=== PATIENT | female | born 1960 | race Caucasian/White ===

== ENCOUNTER 2021-04-16 18:57 | Inpatient (IN) | payer OTHER ==
[2021-04-16] MEDS ORDERED: HYDROmorphone 1 MG/ML 1 ML SYRINGE IVP STA ×2 (19:24→20:18)
--- NOTE | 2021-04-16 19:34 | ED ---
General Adult HPI - General Chief complaint: Fall Stated complaint: fall Time Seen by Provider: 04/16/21 19:11 Source: patient, RN notes reviewed, old records reviewed Mode of arrival: EMS Limitations: no limitations - History of Present Illness Initial comments: 60-year-old female presenting with left hip pain status post fall. There was head injury without loss consciousness. No anticoagulation. Patient tripped over a sweater drying rack. She fell onto her left hip. She was unable to ambulate or bear weight. She was transported by EMS. Given 5 mg of morphine prior to arrival. Her chief and may complaint is left hip pain with any sort of movement. No the foot or ankle pain. No chest pain. No palpitations. No fever. - Related Data Home Medications Medication Instructions Recorded Confirmed Ascorbic Acid [Vitamin C] 500 mg PO DAILY 04/16/21 04/16/21 Cholecalciferol [Vitamin D3 (25 25 mcg PO DAILY 04/16/21 04/16/21 Mcg = 1000 Iu)] Dextromethorphan Polistirex 150 mg PO Q12H PRN 04/16/21 04/16/21 [Delsym] Zinc 50 mg PO DAILY 04/16/21 04/16/21 guaiFENesin [Mucinex] 600 mg PO Q12H PRN 04/16/21 04/16/21 Allergies Allergy/AdvReac Type Severity Reaction Status Date / Time No Known Allergies Allergy Verified 04/16/21 20:07 Review of Systems ROS Statement: Those systems with pertinent positive or pertinent negative responses have been documented in the HPI. ROS Other: All systems not noted in ROS Statement are negative. Past Medical History Past Medical History: Thyroid Disorder History of Any Multi-Drug Resistant Organisms: None Reported Past Alcohol Use History: Occasional Past Drug Use History: None Reported General Exam Limitations: no limitations General appearance: alert, in no apparent distress Head exam: Present: normocephalic. Absent: atraumatic (Abrasion and hematoma left lateral orbital region) Eye exam: Present: normal appearance, PERRL ENT exam: Present: normal exam Neck exam: Present: normal inspection. Absent: tenderness, meningismus Respiratory exam: Present: normal lung sounds bilaterally. Absent: respiratory distress, wheezes Cardiovascular Exam: Present: regular rate, normal rhythm GI/Abdominal exam: Present: soft. Absent: distended, tenderness, guarding Extremities exam: Present: tenderness (Internally rotated left lower extremity at the hip. Pain with range of motion. Distal sensation and pulses intact.). Absent: full ROM Neurological exam: Present: alert, oriented X3, CN II-XII intact. Absent: motor sensory deficit Psychiatric exam: Present: normal affect, normal mood Skin exam: Present: warm, dry. Absent: cyanosis, diaphoretic Course Vital Signs 04/16/21 04/16/21 19:00 20:24 Temperature 97.9 F Pulse Rate 105 H 110 H Respiratory 20 16 Rate Blood Pressure 127/59 134/67 O2 Sat by Pulse 97 95 Oximetry Medical Decision Making - Medical Decision Making 60-year-old female presenting status post ground-level fall. Minor head injury. CT performed negative for intracranial hemorrhage or mass effect. Patient has chest x-ray which is clear, she has a left intertrochanteric fracture of the left hip. No other injuries. Did discuss case with cold covering for [facility] who does recommend a full femur x-ray this is pending. She will be admitted to orthopedics with internal medicine on consult. - Lab Data Result diagrams: 04/16/21 19:49 04/16/21 19:49 Lab Results 04/16/21 04/16/21 04/16/21 Range/Units 19:49 19:49 19:49 WBC 13.9 H (3.8-10.6) k/uL RBC 3.55 L (3.80-5.40) m/uL Hgb 12.5 (11.4-16.0) gm/dL Hct 37.8 (34.0-46.0) % MCV 106.6 H (80.0-100.0) fL MCH 35.3 H (25.0-35.0) pg MCHC 33.1 (31.0-37.0) g/dL RDW 13.3 (11.5-15.5) % Plt Count 448 (150-450) k/uL MPV 7.4 Neutrophils % 76 % Lymphocytes % 17 % Monocytes % 5 % Eosinophils % 0 % Basophils % 0 % Neutrophils # 10.7 H (1.3-7.7) k/uL Lymphocytes # 2.4 (1.0-4.8) k/uL Monocytes # 0.7 (0-1.0) k/uL Eosinophils # 0.1 (0-0.7) k/uL Basophils # 0.0 (0-0.2) k/uL Macrocytosis Moderate PT 10.4 (9.0-12.0) sec INR 1.0 (<1.2) APTT 23.2 (22.0-30.0) sec Sodium 139 (137-145) mmol/L Potassium 3.9 (3.5-5.1) mmol/L Chloride 107 (98-107) mmol/L Carbon Dioxide 24 (22-30) mmol/L Anion Gap 8 mmol/L BUN 15 (7-17) mg/dL Creatinine 0.37 L (0.52-1.04) mg/dL Est GFR (CKD-EPI)AfAm >90 (>60 ml/min/1.73 sqM) Est GFR (CKD-EPI)NonAf >90 (>60 ml/min/1.73 sqM) Glucose 101 H (74-99) mg/dL Calcium 8.6 (8.4-10.2) mg/dL Total Bilirubin 0.6 (0.2-1.3) mg/dL AST 42 H (14-36) U/L ALT 25 (4-34) U/L Alkaline Phosphatase 61 (38-126) U/L Total Protein 7.1 (6.3-8.2) g/dL Albumin 4.2 (3.5-5.0) g/dL Disposition Clinical Impression: Fall, Fracture, intertrochanteric, left femur Disposition: ADMITTED IP TO THIS [facility] Condition: Stable Is patient prescribed a controlled substance at d/c from ED?: No Referrals: None,Stated [Primary Care Provider] - 1-2 days Decision to Admit Reason: Admit from EC Decision Date: 04/16/21 Decision Time: 21:10
[2021-04-16 20:08] LABS: Basophils % (A) 0 %; Eosinophils # (A) 0.1 k/uL (0-0.7); Eosinophils % (A) 0 %; HCT 37.8 % (34.0-46.0); HGB 12.5 gm/dL (11.4-16.0); Lymphocytes # (A) 2.4 k/uL (1.0-4.8); Lymphocytes % (A) 17 %; MCH 35.3 pg (25.0-35.0); MCHC 33.1 g/dL (31.0-37.0); MCV 106.6 fL (80.0-100.0); Macrocytosis Moderate; Mean Platelet Volume 7.4; Monocytes # (A) 0.7 k/uL (0-1.0); Monocytes % (A) 5 %; Neutrophils # (A) 10.7 k/uL (1.3-7.7); Neutrophils % (A) 76 %; Platelet Count 448 k/uL (150-450); RBC 3.55 m/uL (3.80-5.40); RDW 13.3 % (11.5-15.5); WBC 13.9 k/uL (3.8-10.6)
[2021-04-16 20:20] LABS: ALT 25 U/L (4-34); AST 42 U/L (14-36); African American GFR (CKD) >90 (>60 ml/min/1.73 sqM); Albumin 4.2 g/dL (3.5-5.0); Alkaline Phosphatase 61 U/L (38-126); Anion Gap 8 mmol/L; Blood Urea Nitrogen 15 mg/dL (7-17); Calcium 8.6 mg/dL (8.4-10.2); Carbon Dioxide 24 mmol/L (22-30); Chloride 107 mmol/L (98-107); Glucose 101 mg/dL (74-99); Non-African American GFR(CKD) >90 (>60 ml/min/1.73 sqM); Potassium 3.9 mmol/L (3.5-5.1); Sodium 139 mmol/L (137-145); Total Bilirubin 0.6 mg/dL (0.2-1.3); Total Protein 7.1 g/dL (6.3-8.2)
[2021-04-16 20:23] LABS: Partial Thromboplastin Time 23.2 sec (22.0-30.0); Prothrombin Time 10.4 sec (9.0-12.0)
--- NOTE | 2021-04-16 20:35 | CT ---
EXAMINATION TYPE: CT brain eleanorine wo con DATE OF EXAM: 04/16/2021 COMPARISON: None HISTORY: Fall. CT DLP: 1357.6 mGycm Automated exposure control for dose reduction was used. TECHNIQUE: CT scan of the head and cervical spine are performed without contrast. FINDINGS: There is no acute intracranial hemorrhage, mass effect, or midline shift identified. The ventricles and sulci are within normal limits in size. The globes are intact . Thickening of the ma xillary sinuses where air cells and frontal sinuses bilaterally Cervical spine is visualized in its entirety from C1 through upper thoracic levels and demonstrates s atisfactory alignment without evidence of acute fracture or dislocation. Prevertebral soft tissue ap pears within normal limits. The C1-C2 articulation is unremarkable. Centrilobular emphysematous lauren nges within the lung apices. IMPRESSION: 1. There is no acute fracture or dislocation evident in the cervical spine. 2. No acute intracranial hemorrhage, mass effect, or midline shift is seen. 3. Centrilobular emphysema. 4. Paranasal sinus disease.
[2021-04-16] MEDS ORDERED: KETOROLAC 30 MG/ML 1 ML VIAL IVP STA (21:00)
--- NOTE | 2021-04-16 21:00 | XR ---
EXAMINATION TYPE: XR Hip LT and AP Pelvis DATE OF EXAM: 04/16/2021 COMPARISON: NONE HISTORY: Pain TECHNIQUE: A single AP view of the pelvis is obtained. Two views of the left hip are obtained. FINDINGS: Deformity of the proximal left hip with fracture line through the intertrochanteric region. No evidence of articular extension. Mild displacement present based 1.9 cm radiopaque foreign body i s identified. Multiple pelvic phleboliths are present. Soft tissues are grossly unremarkable. Additional fractures are identified. IMPRESSION: Left intertrochanteric proximal femur fracture minimal displacement.
--- NOTE | 2021-04-16 21:02 | XR ---
INDICATION: Patient age:Female; 60 years old; Reason for study: Pain; PHH. COMPARISON: None. TECHNIQUE: Frontal view of the chest. FINDINGS: Lungs/Pleura: There is no evidence of pleural effusion, focal consolidation, or pneumothorax. Pulmonary vascularity: Unremarkable. Heart/mediastinum: Cardiomediastinal silhouette is unremarkable. Musculoskeletal: No acute osseous pathology. IMPRESSION: No acute cardiopulmonary disease/process.
[2021-04-16] MEDS ORDERED: NALOXONE 0.4 MG/ML 1 ML VIAL IV PRN (21:04)
[2021-04-16] MEDS ORDERED: ACETAMINOPHEN TAB 325 MG TAB PO PRN (21:04)
[2021-04-16] MEDS: KETOROLAC 30 MG/ML 1 ML VIAL IVP PRN (22:04)
[2021-04-16] MEDS: HYDROmorphone 0.5 MG/0.5 ML SYRINGE IVP PRN (22:08)
[2021-04-16] MEDS: SODIUM CHLORIDE 0.9% 1,000 ML IV SCH (22:18)
--- NOTE | 2021-04-16 22:50 | CT ---
EXAMINATION TYPE: CT femur LT wo con DATE OF EXAM: 04/16/2021 COMPARISON: None HISTORY: fall CT DLP: 465.1 mGycm Automated exposure control for dose reduction was used. Images obtained from the mid ileum to the proximal tibia without contrast. There is comminuted intertrochanteric fracture of the left femur without significant overall displace ment. Acetabulum is intact. Femoral head is intact. The mid and distal femur appear intact. Knee join t is anatomic. There is some lucency in the intertrochanteric region of the left femur. There is loss of the bone tr abecula and the density is slightly higher than the bone marrow in the proximal shaft of the femur. IMPRESSION: Acute comminuted intertrochanteric fracture left femur without significant displacement. There is probably an osteolytic lesion involving the intertrochanteric left femur. This could be myel cristiano.
[2021-04-17] MEDS: KETOROLAC 30 MG/ML 1 ML VIAL IVP PRN (03:04)
[2021-04-17] MEDS: HYDROmorphone 1 MG/ML 1 ML SYRINGE IVP PRN ×2 (07:39→12:22)
--- NOTE | 2021-04-17 10:28 | P.HPOR ---
History of Present Illness H&P Date: 04/17/21 Chief Complaint: left hip pain Patient is a 60-year-old female presenting the hospital with left hip pain status post fall. Patient was seen at bedside this morning lying supine in the emergency department. Patient says last night she was walking in her home and tripped over a sweater drying rack. Patient fell onto her left hip. Patient denies loss of consciousness/trauma to the head. Patient denies any other injuries/pain. Patient is brought to the hospital by EMS. Patient denies any other previous orthopedic surgical history. Patient points and states that most of the pain is located at the outside of her hip. She rates pain as 10/10. Patient says there is radiation of pain down the left leg. Patient says she is not on any blood thinners. Patient says she is a smoker. Patient also says she tested positive for elevated about 10 days ago on Thanksgiving. Patient denies chest pain, fever, shortness of breath, nausea, vomiting, change in vision, loss of bowel/bladder control. Past Medical History Past Medical History: Thyroid Disorder History of Any Multi-Drug Resistant Organisms: None Reported Past Alcohol Use History: Occasional Past Drug Use History: None Reported Medications and Allergies Home Medications Medication Instructions Recorded Confirmed Type Ascorbic Acid [Vitamin C] 500 mg PO DAILY 04/16/21 04/16/21 History Cholecalciferol [Vitamin D3 (25 25 mcg PO DAILY 04/16/21 04/16/21 History Mcg = 1000 Iu)] Dextromethorphan Polistirex 150 mg PO Q12H PRN 04/16/21 04/16/21 History [Delsym] Zinc 50 mg PO DAILY 04/16/21 04/16/21 History guaiFENesin [Mucinex] 600 mg PO Q12H PRN 04/16/21 04/16/21 History Allergies Allergy/AdvReac Type Severity Reaction Status Date / Time No Known Allergies Allergy Verified 04/16/21 20:07 Physical Examination Inspection: Left leg shortened and externally rotated. There is no evidence of ecchymosis, erythema, open fractures on left leg. Sensation: Sensation is equal, symmetric, bilaterally intact throughout. Palpation: There is significant tenderness to palpation diffusely throughout the left hip especially in the lateral hip. Nontender to palpation throughout rest exam Range of motion: Patient is able to flex and exetnd digits in left foot and plantar/dorsiflex left ankle. Left hip/knee ROM limited due to pain. Patient has full range of motion in bilateral UE and RLE Motor: Right leg - 5/5 in resisted hip flexion/extension, knee flexio n/extension, plantar flexion/dorsiflexion the right ankle; 5/5 in resisted elbow flexion/extension, wrist flexion/extension, shoulder abduction, internal/external rotation of the bilateral UE. Left leg motor exams limited due to patient's pain. Resident Physician strength 4/5 in bilateral UE Neurovascular: Refill under 3 seconds bilaterally in upper extremity digits. DP pulses intact, bilaterally, 2+. Results - Labs Labs: Abnormal Lab Results - Last 24 Hours (Table) 04/16/21 04/16/21 04/17/21 Range/Units 19:49 19:49 00:46 WBC 13.9 H (3.8-10.6) k/uL RBC 3.55 L (3.80-5.40) m/uL MCV 106.6 H (80.0-100.0) fL MCH 35.3 H (25.0-35.0) pg Neutrophils # 10.7 H (1.3-7.7) k/uL Creatinine 0.37 L (0.52-1.04) mg/dL Glucose 101 H (74-99) mg/dL AST 42 H (14-36) U/L Coronavirus (PCR) Detected A (Not Detectd) H & H 04/16/21 Range/Units 19:49 Hgb 12.5 (11.4-16.0) gm/dL Hct 37.8 (34.0-46.0) % Coagulation 04/16/21 Range/Units 19:49 INR 1.0 (<1.2) Result Diagrams: 04/16/21 19:49 04/16/21 19:49 Assessment and Plan Assessment: 1. Left hip intertrochanteric fracture status post fall Plan: 1. Left hip intertrochanteric fracture status post fall - patient seen at bedside this morning. Patient to remain nothing by mouth. Plan to take to surgery this afternoon, Sunday, 1left hip intramedullary nail. 2. Appreciate medical management - patient needs medical clearance 3. Pain management - Dilaudid; Toradol; Tylenol 4. DVT prophylaxis - hold thinners at this time 5. PT/OT - nonweightbearing left leg Time with Patient: Less than 30
[2021-04-17] MEDS ORDERED: NICOTINE 21MG/24HR PATCH TRANSDERM PRN (11:23)
--- NOTE | 2021-04-17 11:30 | P.CONS ---
History of Present Illness - Reason for Consult Pre- operative clearance - History of Present Illness Patient was a 60-year-old female had a mechanical fall leading to left-sided femoral neck fracture. Patient does have smoking history smokes about one and half packs per day patient drinks alcohol she says 3 days a week but I believe she drinks more than that. Patient was diagnosed with Covid 19 10 days ago patient is still positive but probably not infected at this time. Patient chest x-ray did not show any infiltrate. Patient's function status is good not dependent on ADLs and IADLs. any fever chills patient denied any cardiac history EKG did not show any acute ST-T wave changes. REVIEW OF SYSTEMS: CONSTITUTIONAL: No fever, no malaise, no fatigue. HEENT: No recent visual problems or hearing problems. Denied any sore throat. CARDIOVASCULAR: No chest pain, orthopnea, PND, no palpitations, no syncope. PULMONARY: No shortness of breath, no cough, no hemoptysis. GASTROINTESTINAL: No diarrhea, no nausea, no vomiting, no abdominal pain. NEUROLOGICAL: No headaches, no weakness, no numbness. HEMATOLOGICAL: Denies any bleeding or petechiae. GENITOURINARY: Denies any burning micturition, frequency, or urgency. MUSCULOSKELETAL/RHEUMATOLOGICAL: As mentioned in HPI ENDOCRINE: Denies any polyuria or polydipsia. The rest of the 14-point review of systems is negative. PHYSICAL EXAMINATION: GENERAL: The patient is alert and oriented x3, not in any acute distress. Well developed, well nourished. HEENT: Pupils are round and equally reacting to light. EOMI. No scleral icterus. No conjunctival pallor. Normocephalic, atraumatic. No pharyngeal erythema. No thyromegaly. CARDIOVASCULAR: S1 and S2 present. No murmurs, rubs, or gallops. PULMONARY: Chest is clear to auscultation, no wheezing or crackles. ABDOMEN: Soft, nontender, nondistended, normoactive bowel sounds. No palpable organomegaly. MUSCULOSKELETAL: Left hip pain EXTREMITIES: No cyanosis, clubbing, or pedal edema. NEUROLOGICAL: Gross neurological examination did not reveal any focal deficits. SKIN: No rashes. Assessment and plan 1 preoperative clearance for left hip arthroplasty: Patient is low operative risk for surgery her risk factors includes smoking and to some extent or alcohol use if she has withdrawals patient can be treated postoperatively. Patient does have weighed she doesn't have any infiltrate doesn't appear to be limiting factor for surgery patient is probably not infected at this time will not require any systemic steroids. Patient was diagnosed with "10 days ago. -Alcohol use: Counseling was provided -Nicotine use counseling was provided and patient was started on nicotine patch if needed -Left hip fracture further management pain management as per primary service -Thyroidism continue with levothyroxine DVT prophylaxis: As per primary service Past Medical History Past Medical History: Thyroid Disorder History of Any Multi-Drug Resistant Organisms: None Reported Past Alcohol Use History: Occasional Past Drug Use History: None Reported Medications and Allergies Home Medications Medication Instructions Recorded Confirmed Type Ascorbic Acid [Vitamin C] 500 mg PO DAILY 04/16/21 04/16/21 History Cholecalciferol [Vitamin D3 (25 25 mcg PO DAILY 04/16/21 04/16/21 History Mcg = 1000 Iu)] Dextromethorphan Polistirex 150 mg PO Q12H PRN 04/16/21 04/16/21 History [Delsym] Zinc 50 mg PO DAILY 04/16/21 04/16/21 History guaiFENesin [Mucinex] 600 mg PO Q12H PRN 04/16/21 04/16/21 History Allergies Allergy/AdvReac Type Severity Reaction Status Date / Time No Known Allergies Allergy Verified 04/16/21 20:07 Physical Exam Vitals: Vital Signs Temp Pulse Resp BP Pulse Ox 04/17/21 10:21 98 F 93 16 117/83 94 L 04/17/21 07:40 98.1 F 84 18 132/79 96 04/17/21 06:00 88 16 127/72 94 L 04/17/21 00:00 98 18 117/69 95 04/16/21 20:24 110 H 16 134/67 95 04/16/21 19:00 97.9 F 105 H 20 127/59 97 Intake and Output 04/16/21 04/17/21 04/17/21 22:59 06:59 14:59 Other: Weight 49.895 kg Results CBC & Chem 7: 04/16/21 19:49 04/16/21 19:49 Labs: Abnormal Lab Results - Last 24 Hours (Table) 12/04/21 12/04/21 12/05/21 Range/Units 19:49 19:49 00:46 WBC 13.9 H (3.8-10.6) k/uL RBC 3.55 L (3.80-5.40) m/uL MCV 106.6 H (80.0-100.0) fL MCH 35.3 H (25.0-35.0) pg Neutrophils # 10.7 H (1.3-7.7) k/uL Creatinine 0.37 L (0.52-1.04) mg/dL Glucose 101 H (74-99) mg/dL AST 42 H (14-36) U/L Coronavirus (PCR) Detected A (Not Detectd)
[2021-04-17] MEDS ORDERED: KETAMINE 10 MG/ML 20 ML VIAL ONE (14:29)
[2021-04-17] MEDS ORDERED: MIDAZOLAM 2 MG/2 ML VIAL ONE (14:29)
[2021-04-17] MEDS ORDERED: SODIUM CHLORIDE 0.9% 100 ML with ceFAZolin 2,000 MG IV ONE ×2 (14:29)
[2021-04-17] MEDS ORDERED: IV FLUID CONTINUATION 1,000 ML IV ONE (14:29)
[2021-04-17] MEDS ORDERED: PHENYLEPHRINE-0.9% NACL SYG 1,000 MCG/10 ML SYRINGE ONE (14:29)
[2021-04-17] MEDS ORDERED: PROPOFOL 10 MG/ML 20 ML VIAL IV ONE (14:29)
[2021-04-17] MEDS ORDERED: NALOXONE 0.4 MG/ML 1 ML VIAL IV PRN (15:40)
[2021-04-17] MEDS ORDERED: HYDROcodone/APAP 5-325MG 1 EACH TAB PO PRN (15:40)
--- NOTE | 2021-04-17 16:58 | P.PN ---
Progress Note - Text Progress Note Date: 04/17/21 Brief Post op Pt s/e doing OK. pain controlled. VSS. Dressing CDI. She is sleepy still from anesthesia. She will go to her room when available. No other issues at this time. Will follow tomorrow
--- NOTE | 2021-04-17 18:06 | FL ---
EXAMINATION TYPE: FL guidance operating room, XR Hip Complete LT DATE OF EXAM: 04/17/2021 CLINICAL HISTORY: Left hip intramedullary nail fixation TECHNIQUE: Fluoroscopy. COMPARISON: 04/16/2021 left hip x-ray FINDINGS: Fluoroscopic guidance was provided during procedure performed by Dr. Madera. A total of 1 minute 9 seconds of fluoroscopic time was utilized during the procedure and 6 intraoperative spot images we re acquired. Intraoperative images of the left hip demonstrates the left comminuted intertrochanteric femur fractu re, and no left hip dislocation. There is placement of a left femoral intramedullary nail with screw fixation. There is anatomic alignment status post intramedullary nail fixation. IMPRESSION: As Above.
[2021-04-17] MEDS: PANTOPRAZOLE 40 MG/10 ML VIAL IVP SCH (18:08)
[2021-04-17] MEDS: SODIUM CHLORIDE 0.9% 1,000 ML IV SCH ×2 (18:08→20:17)
[2021-04-17 18:21] LABS: Basophils # (A) 0.1 k/uL (0-0.2); Basophils % (A) 0 %; Eosinophils # (A) 0.1 k/uL (0-0.7); Eosinophils % (A) 1 %; HCT 37.4 % (34.0-46.0); HGB 12.5 gm/dL (11.4-16.0); Lymphocytes # (A) 2.5 k/uL (1.0-4.8); Lymphocytes % (A) 20 %; MCH 35.8 pg (25.0-35.0); MCHC 33.5 g/dL (31.0-37.0); MCV 106.9 fL (80.0-100.0); Macrocytosis Moderate; Monocytes # (A) 0.5 k/uL (0-1.0); Monocytes % (A) 4 %; Neutrophils # (A) 9.6 k/uL (1.3-7.7); Neutrophils % (A) 75 %; Platelet Count 346 k/uL (150-450); RDW 12.5 % (11.5-15.5); WBC 12.9 k/uL (3.8-10.6)
[2021-04-17] MEDS: HYDROmorphone 0.5 MG/0.5 ML SYRINGE IVP PRN ×2 (18:26→21:33)
[2021-04-17] MEDS: HYDROcodone/APAP 7.5-325MG 1 EACH TAB PO PRN (20:10)
[2021-04-17] MEDS ORDERED: SENNOSIDES-DOCUSATE SODIUM 1 EACH TAB PO SCH (21:00)
[2021-04-17] MEDS: NICOTINE 14MG/24HR PATCH TRANSDERM SCH (23:22)
[2021-04-18] MEDS: HYDROcodone/APAP 7.5-325MG 1 EACH TAB PO PRN ×3 (03:57→15:11)
--- NOTE | 2021-04-18 07:14 | P.OP ---
Date of Procedure: 04/17/21 Preoperative Diagnosis: 1. Lt hip IT fracture 3 part unstable. Postoperative Diagnosis: 1. Lt hip IT fracture, 3 part unstable Procedure(s) Performed: 1. Lt hip IMN fixation Implants: SN 130 deg 11mm 180 mm Anesthesia: spinal Surgeon: Ward Madera Party Plan Sales Director #1: Bradley Back (Was present and necessary due to the complexity of the case) Estimated Blood Loss (ml): 50 IV fluids (ml): 300 Urine output (ml): 50 Pathology: none sent Condition: stable Disposition: floor Indications for Procedure: 60 yo female presented due to ffs at home. Daughter states the patient had been drinking and she became unsteady and fell to the floor. Pt states she fell on her Lt side and was unable to get up for some time prior to her daughter finding her as she was out. Pt lives with daughter. She c/o pain in her Lt hip with motion and cannot ambulate. She denies any BHT or LOC with the fall. She denies any f/c/sob/cp at this time. We discussed all options for treatment and she has agreed to surgical fixation of this hip as it gives her the best change to heal. She understands the risks and benefits of the procedure. We discussed all these as well as alternatives. She is willing to assume these and all the risks of surgery. She is ready to proceed. Description of Procedure: The patient was seen and examined in the preoperative area. All preoperative protocols were followed. Informed consent was obtained risks and benefits of the procedure were discussed at length. Risks including bleeding infection damage to the surrounding tissue and risk of reoperation were discussed with the patient. Risk of anesthesia up to and including was a discussed with the patient. These are outlined in the risk reviewed. They were willing to accept these risks and all of the risks of surgery. The patient was given a weight- based dose of antibiotics in the form of 2 g Ancef. The patient was seen and evaluated by the anesthesia team who deemed them fit for surgery. The site was marked, the patient was willing to proceed with the procedure. The patient was transferred to the operative suite by the Department of anesthesia. There were then drifted off to sleep by the department of anesthesia and spinal with sedation anesthesia was used. Once adequate anesthesia had been obtained the patient was carefully transferred to the operative bed. All bony prominences were padded accordingly. SCDs were placed on the nonoperative lower extremities. Arms were well padded. Patient was placed on enedina table of the head was placed and she was placed in enedina boots. These were well padded and secured. X-rays were then performed confirming the correct side and briefing was performed. We then performed reduction maneuver with an table. Once in good position we proceeded. Preoperative briefing was done with the operative team and everyone was ready for the procedure to start. The patients left lower extremity was then prepped and draped in the normal sterile fashion. Timeout was then performed and all parties in agreement with the procedure to be performed. Incision was then made 2 cm proximally greater trochanter sharp dissection through the fascia and blunt dissection was taken down to the tip of the greater trochanter. This was palpated. Awl was then used to enter the femur made ideal starting position on AP and lateral fluoroscopy. Once this was confirmed inside the femoral shaft a ball-tipped guidewire was passed and this was removed. The opening reamer was then passed a ball-tipped guidewire under fluoroscopic imaging opening reamer was passed. We then passed sequentially 01/22/2013 reamers for the nail. Over the guidewire. This was done without incident. We then selected the nail and placed it. Under fluoroscopic imaging impacted the nail into ideal position. Then placed the jig for the lag screw skin incision made over the lateral aspect of the leg dissection taken down to the tensor fas jordan and the muscle elevated. We then placed the jig against bone and a pin was placed center center within the head and neck and within 10 mm of subchondral bone. This was confirmed on AP and lateral fluoroscopy once in place within drilled for the compression screw of the [employer] nail. Once this was drilled the spatula was placed and we then drilled for the lag screw. Then placed a lag screw over the wire. Wire was then removed and the compression screw was placed. We did get about to 5 mm of compression on the fracture was good and made it stable. We then locked the nail proximally. We then confirmed AP and lateral positioning. We then proceeded to use static locking screw distally this was placed through the guide skin incision made and blunt dissection taken down to the bone the trocar was then placed. We then drilled and placed a lag screw distally through the nail. Then confirmed on images good placement of the nail the jig was then removed and final images taken. The nails in good position was good reduction of fracture. We then copiously irrigated the wounds normal sterile saline the fascia was closed with 0 Vicryl subcu tissue closed with 2-0 Vicryl and skin closed with skin gilberto. The wound edges approximated very well. The wound was then cleaned and dressed sterilely with Adaptic 4 x 4's and foam tape. The patient was then transferred back to their hospital bed. There were awakened by department of anesthesia having tolerated the procedure very well with no complications. The patient was then transported to the postoperative care unit in stable condition.
[2021-04-18] MEDS: PANTOPRAZOLE 40 MG/10 ML VIAL IVP SCH (08:02)
[2021-04-18] MEDS: KETOROLAC 30 MG/ML 1 ML VIAL IVP PRN (08:02)
[2021-04-18] MEDS: NICOTINE 14MG/24HR PATCH TRANSDERM SCH (08:02)
[2021-04-18] MEDS ORDERED: ENOXAPARIN 30 MG/0.3 ML SYRINGE SQ SCH (09:00)
--- NOTE | 2021-04-18 12:28 | P.DS ---
Providers Date of admission: 04/16/21 21:04 Expected date of discharge: 04/18/21 Attending physician: Ward Madera DO Consults: 04/16/21 21:07 Consult Physician Routine Consulting Provider: Harsha Vasquez Consult Reason/Comments: Preoperative clearance Do you want consulting provider notified?: Yes Primary care physician: Stated None Hospital Course: Date of admission: 04/17/2021 Date of discharge: 04/18/2021 Admission diagnosis: Lt hip IT fracture 3 part unstable Discharge diagnosis: Same Attending physician: Dr. Madera Surgical procedures: Left hip intramedullary nail Brief history: Patient is a 58-year-old female with a history of left hip IT fracture status post fall. At this point patient has failed conservative treatment measures and has opted to proceed with a elective left hip intramedullary nail fixation. Hospital course: Details of patient's surgery can be found in operative report. Patient tolerated the procedure well and was subsequently transported to orthopedic floor. Patient's orthopeidc and medical care was provided daily. Patient had daily laboratory tests performed for evaluation of overall blood counts. Patient had daily physical therapy to include strengthening range of motion as well as education with walker ambulation. Patient was treated with Lovenox for their postoperative DVT prophylaxis during their inpatient stay. Patient was noted to have a relatively uneventful postoperative course. Patient reported satisfactory pain control with oral pain medications by postoperative day 1. Patient showed satisfactory progress with physical therapy. Patient moved steadily through the program and had no difficulty meeting the goals by postoperative day 1. Given patient's otherwise satisfactory course and having met physical therapy goals, plan is to discharge patient home on postoperative day 1. Discharge condition/disposition: Patient will be discharged home with health services in stable condition. Discharge medications: Instructions are given on resumption of patient's normal daily medications per primary care recommendation, in addition patient will be prescribed [place]; Colace; aspirin 325 mg daily 21 days. Discharge instructions: 1. Wound care and infection precautions, keep incision dry and covered while showering, no lotions, creams, moisturizers. No soaking, tubs, pools, hottubs. Do not scrub over the incision. 2. Weight-bear as tolerated with walker / cane until follow-up. 3. Ice and elevate when necessary. Do not exceed 20 minutes per hour with ice pack. 5. Visiting nursing care. 6. Home physical therapy. 7. Pain meds and anticoagulants per prescription. 8. Pain medication has potential to cause constipation. Increase oral fluid and fiber intake. Contact primary care provider if you have not had a bowel movement within 48 hours after discharge 9. No anti-inflammatory medication until discussed at first post operative visit, this including Motrin, Aleve, Mobic, Diclofenac. 10. Follow up in office at [address] Ward Madera. 11. Follow up with your primary care doctor 7-10 days after discharge. 12. Contact [facility] with any questions, . Keep incision clean, dry, intact. Silver foam dressing may be removed in 5 days. While showering, cover incisions with Saran wrap or plastic bag. Medications: [place]; Colace; aspirin 325 mg daily 21 days. Assessment: 1. Lt hip IT fracture 3 part unstable. Procedures: 1. Lt hip IMN fixation Patient Condition at Discharge: Stable Plan - Discharge Summary Discharge Rx Participant: No New Discharge Prescriptions: New Aspirin 325 mg PO DAILY #21 tab cefaDROXiL [Duricef] 500 mg PO Q12HR 5 Days #10 cap HYDROcodone/APAP 5-325MG [[place] 5-325] 1 tab PO Q6HR PRN #28 tab PRN Reason: Pain Docusate [Colace] 100 mg PO DAILY #30 capsule No Action Cholecalciferol [Vitamin D3 (25 Mcg = 1000 Iu)] 25 mcg PO DAILY Ascorbic Acid [Vitamin C] 500 mg PO DAILY Dextromethorphan Polistirex [Delsym] 150 mg PO Q12H PRN PRN Reason: Cough guaiFENesin [Mucinex] 600 mg PO Q12H PRN PRN Reason: Cold Symptoms Zinc 50 mg PO DAILY Discharge Medication List Ascorbic Acid [Vitamin C] 500 mg PO DAILY 04/16/21 [History] Cholecalciferol [Vitamin D3 (25 Mcg = 1000 Iu)] 25 mcg PO DAILY 04/16/21 [History] Dextromethorphan Polistirex [Delsym] 150 mg PO Q12H PRN 04/16/21 [History] Zinc 50 mg PO DAILY 04/16/21 [History] guaiFENesin [Mucinex] 600 mg PO Q12H PRN 04/16/21 [History] Aspirin 325 mg PO DAILY #21 tab 04/18/21 [Rx] Docusate [Colace] 100 mg PO DAILY #30 capsule 04/18/21 [Rx] HYDROcodone/APAP 5-325MG [[place] 5-325] 1 tab PO Q6HR PRN #28 tab 04/18/21 [Rx] cefaDROXiL [Duricef] 500 mg PO Q12HR 5 Days #10 cap 04/18/21 [Rx] Follow up Appointment(s)/Referral(s): None,Stated [Primary Care Provider] - 1-2 days Ward Madera DO [Doctor of Osteopathic Medicine] - 2 Weeks Patient Instructions/Handouts: Hip Fracture (GEN) Activity/Diet/Wound Care/Special Instructions: Discharge instructions: 1. Wound care and infection precautions, keep incision dry and covered while showering, no lotions, creams, moisturizers. No soaking, tubs, pools, hottubs. Do not scrub over the incision. 2. Weight-bear as tolerated with walker / cane until follow-up. 3. Ice and elevate when necessary. Do not exceed 20 minutes per hour with ice pack. 5. Visiting nursing care. 6. Home physical therapy. 7. Pain meds and anticoagulants per prescription. 8. Pain medication has potential to cause constipation. Increase oral fluid and fiber intake. Contact primary care provider if you have not had a bowel movement within 48 hours after discharge 9. No anti-inflammatory medication until discussed at first post operative visit, this including Motrin, Aleve, Mobic, Diclofenac. 10. Follow up in office at [address] Ward Madera. 11. Follow up with your primary care doctor 7-10 days after discharge. 12. Contact [facility] with any questions, . Keep incision clean, dry, intact. Silver foam dressing may be removed in 5 days. While showering, cover incisions with Saran wrap or plastic bag. Medications: [place]; Colace; aspirin 325 mg daily 21 days; Duricef 500 mg BID x 5 days. Discharge Disposition: HOME WITH HOME HEALTH SERVICES
--- NOTE | 2021-04-18 14:07 | P.PN ---
Subjective Patient was a 60-year-old female had a mechanical fall leading to left-sided femoral neck fracture. Patient does have smoking history smokes about one and half packs per day patient drinks alcohol she says 3 days a week but I believe she drinks more than that. Patient was diagnosed with Covid 19 10 days ago patient is still positive but probably not infected at this time. Patient chest x-ray did not show any infiltrate. Patient's function status is good not dependent on ADLs and IADLs. any fever chills patient denied any cardiac history EKG did not show any acute ST-T wave changes. 04/18/2021 Patient is being discharged today patient is clinically doing well. Patient is being discharged on aspirin for DVT prophylaxis and this is as per orthopedic surgery. Patient does have some leukocytosis which is not unexpected post [place] rgery patient doesn't have any clinical evidence of pneumonia or UTI or any other infection. Constitutional: Denied any fatigue denied any fever. Cardio vascular: denied any chest pain, palpitations Gastrointestinal denied any nausea vomiting Pulmonary: Denied any shortness of breath cough Neurologic denied any new focal deficits All inpatient medications were reviewed and appropriate changes in these medications as dictated in the interval history and assessment and plan. PHYSICAL EXAMINATION: GENERAL: The patient is alert and oriented x3, not in any acute distress. Well developed, well nourished. HEENT: Pupils are round and equally reacting to light. EOMI. No scleral icterus. No conjunctival pallor. Normocephalic, atraumatic. No pharyngeal erythema. No thyromegaly. CARDIOVASCULAR: S1 and S2 present. No murmurs, rubs, or gallops. PULMONARY: Chest is clear to auscultation, no wheezing or crackles. ABDOMEN: Soft, nontender, nondistended, normoactive bowel sounds. No palpable o rganomegaly. MUSCULOSKELETAL: Left hip pain EXTREMITIES: No cyanosis, clubbing, or pedal edema. NEUROLOGICAL: Gross neurological examination did not reveal any focal deficits. SKIN: No rashes. Assessment and plan -Left hip fracture status post intramedullary nailing. -Alcohol use: Counseling was provided -Nicotine use counseling was provided -Leukocytosis without any evidence of infection secondary to surgery -Thyroidism continue with levothyroxine DVT prophylaxis: As per primary service Patient is stable to discharge from medical perspective, follow with PCP in one week Objective - Vital Signs Vital signs: Vital Signs Temp 98.5 F 04/18/21 10:32 Pulse 127 H 04/18/21 10:32 Resp 16 04/18/21 10:32 BP 131/78 04/18/21 10:32 Pulse Ox 94 L 04/18/21 10:32 Intake & Output 04/17/21 04/18/21 04/18/21 18:59 06:59 18:59 Intake Total 600 Output Total 1080 450 Balance -480 -450 Weight 49.895 kg Intake: IV 600 Output: Urine 1030 450 Estimated Blood Loss 50 Other: Voiding Method Indwelling Catheter Indwelling Catheter Indwelling Catheter - Labs CBC & Chem 7: 04/17/21 17:46 04/16/21 19:49 Labs: Abnormal Lab Results - Last 24 Hours (Table) 04/17/21 Range/Units 17:46 WBC 12.9 H (3.8-10.6) k/uL RBC 3.50 L (3.80-5.40) m/uL MCV 106.9 H (80.0-100.0) fL MCH 35.8 H (25.0-35.0) pg Neutrophils # 9.6 H (1.3-7.7) k/uL
[2021-04-18 14:31] VITALS: BP 130/80; PULSE 131; RESP 19; TEMP 98
== END 2021-04-18 15:29 | disposition home health service (06) | DRG 480 ==
LOC: EC 18:57 → 4SSUR 21:04 → 5NMEDONC 04-17 01:35 → 4SSUR 04-17 01:46
PROVIDERS: ADMIT Orthopaedic Surgery; ATTEND Orthopaedic Surgery
PROC: 0QS736Z Reposition Left Upper Femur with Intramedullary Internal Fixation Device, Percutaneous Approach (ICD-10-PCS; principal; 2021-04-17 12:00)
DX: S72.142A Displaced intertrochanteric fracture of left femur, initial encounter for closed fracture (principal); U07.1 COVID-19; D72.829 Elevated white blood cell count, unspecified; E07.9 Disorder of thyroid, unspecified; F17.210 Nicotine dependence, cigarettes, uncomplicated; Z72.89 Other problems related to lifestyle; Z79.899 Other long term (current) drug therapy; Z71.6 Tobacco abuse counseling; Z71.41 Alcohol abuse counseling and surveillance of alcoholic; W01.0XXA Fall on same level from slipping, tripping and stumbling without subsequent striking against object, initial encounter; Y93.01 Activity, walking, marching and hiking; S09.90XA Unspecified injury of head, initial encounter; Y92.009 Unspecified place in unspecified non-institutional (private) residence as the place of occurrence of the external cause
CPT/HCPCS: 36415; 70450; 71045; 72125; 73502; 80053; 85025; 85610; 85730; 87635; 93005; 96374; 96376; 99285